=== PATIENT | female | born 1990 | race Caucasian/White ===

== ENCOUNTER 2021-02-06 13:26 | Outpatient (CLI) | payer OTHER, SELFPAY ==
--- NOTE | 2021-02-06 13:32 | US_ITS ---
WS: [id number] ULTRASOUND PELVIS TECHNIQUE: Transabdominal and transvaginal. ULTRASOUND PELVIS TECHNIQUE: Transabdominal. CLINICAL INFORMATION: PELVIC PAIN : No. COMPARISON: None. FINDINGS: Uterus Orientation: Anteverted. Size: 8.9 cm x 5.9 cm x 5.7 cm. Masses: None. Cervix: 3.1 cm. Endometrium: Normal. Endometrium thickness: 1.0 cm. Adnexa: Right ovarian cyst measuring 1.5 x 1.3 x 1.5 CCM. Right ovary size: 4.9 cm x 3.0 cm x 3.2 cm. Right ovary volume: 24.5 ccm3. Left ovary size: 2.1 cm x 1.6 cm x 1.8 cm. Left ovary volume: 3.0 ccm3 Free fluid: None. Other findings: None. US/US pelvic with transvaginal IMPRESSION: 1. Uterus and endometrium are normal in appearance. Endometrium measures 10 mm . 2. Normal cervix measuring 3.1 CM. 3. Right ovarian cyst measuring 1.5 x 1.3 x 1.5 CCM. 4. Left ovary is normal.
== END 2021-02-06 13:27 | disposition home or self-care (01) ==
LOC: RAD 13:29
PROVIDERS: PCP Family Medicine; Visit Provider Family Medicine
DX: R10.2 Pelvic and perineal pain (principal); N83.291 Other ovarian cyst, right side
CPT/HCPCS: 76830; 76856

== ENCOUNTER → 2021-03-06 12:05 | Outpatient (BNVA) | payer OTHER, SELFPAY | PROVIDERS: PCP Family Medicine; Visit Provider Nurse Practitioner Women's Health | DX: N93.9 Abnormal uterine and vaginal bleeding, unspecified (principal); R10.2 Pelvic and perineal pain | CPT/HCPCS: 84443; 84702; 85025; 87491; 87591; 87661 ==

== ENCOUNTER → 2021-03-17 13:05 | Outpatient (BNVA) | payer OTHER, SELFPAY | PROVIDERS: PCP Family Medicine; Visit Provider Nurse Practitioner Women's Health | DX: R10.2 Pelvic and perineal pain (principal); N85.2 Hypertrophy of uterus; N83.201 Unspecified ovarian cyst, right side | CPT/HCPCS: 76830 ==

== ENCOUNTER → 2021-05-29 11:38 | Outpatient (BNVA) | payer OTHER, SELFPAY | PROVIDERS: PCP Family Medicine; Visit Provider Nurse Practitioner Women's Health | DX: N83.201 Unspecified ovarian cyst, right side (principal) | CPT/HCPCS: 76830 ==

== ENCOUNTER → 2021-06-26 09:38 | Outpatient (BNVA) | payer OTHER, SELFPAY | PROVIDERS: PCP Family Medicine; Visit Provider Obstetrics & Gynecology | DX: N73.9 Female pelvic inflammatory disease, unspecified (principal); N73.0 Acute parametritis and pelvic cellulitis; N93.9 Abnormal uterine and vaginal bleeding, unspecified; R10.2 Pelvic and perineal pain | CPT/HCPCS: 87070; 87205 ==

== ENCOUNTER → 2021-07-17 08:05 | Outpatient (BNVA) | payer OTHER, SELFPAY | PROVIDERS: PCP Family Medicine; Visit Provider Obstetrics & Gynecology | DX: N93.9 Abnormal uterine and vaginal bleeding, unspecified (principal); R10.2 Pelvic and perineal pain; Z20.822 Contact with and (suspected) exposure to COVID-19 | CPT/HCPCS: 87635 ==

== ENCOUNTER 2021-07-23 05:42 | Day surgery (SDC) | payer OTHER, SELFPAY ==
[2021-07-22 13:35] VITALS: BMI 18.8
[2021-07-23] VITALS (9 sets, daily range): BP systolic 100–140; BP diastolic 71–101; PULSE 60–83; RESP 14–22; TEMP 36.1–36.7; O2SAT 97–100
[2021-07-23 06:34] LABS: OR HCG Qualitative Urine Negative (Negative)
[2021-07-23 06:40] LABS: Add Urine Microscopic? YES; Bacteria Urine 1+ /hpf; Bilirubin Urine Neg (Negative); Blood Urine 2+ (Negative); Glucose Urine UA Norm (Normal); Ketones Urine 1+ (Negative); Leukocyte Esterase Urine 2+ (Negative); Nitrate Urine Negative (Negative); Protein Urine Neg (Negative); RBC Urine RARE /hpf (0-2); Squamous Epithelial Cell Urine 25-40 /hpf (0-5); Urine Appearance SL Hazy (CLEAR); Urine Color Yellow (Yellow); Urobilinogen Urine Norm (Negative); WBC Urine 15-25 /hpf (0-5); pH Urine 5 (5-7)
[2021-07-23 06:41] LABS: Add Urine Culture? No
[2021-07-23] MEDS: sodium chloride 0.9% 1,000 ML 30 ML IV (06:41)
[2021-07-23] MEDS: sodium chloride 0.9% 500 ML IV (06:41)
[2021-07-23] MEDS: scopolamine 1.5 Patch 1 PATCH TRANSDERMA (06:42)
[2021-07-23 06:48] LABS: Basophils # 0.1 10^3/uL (0.0-0.1); Basophils % 0.9 %; Eosinophils # 0.2 10^3/uL (0.0-0.8); Eosinophils % 2.8 %; Hematocrit 39.8 % (37.0-47.0); Hemoglobin 12.9 g/dL (11.5-15.3); Lymphocytes % 35.8 %; Mean Corpuscular HGB Conc 32.4 g/dL (30.0-36.0); Mean Corpuscular Hemoglobin 30.1 pg (28.0-34.0); Mean Corpuscular Volume 92.8 fl (81-99); Monocytes # 0.4 10^3/uL (0.2-0.9); Neutrophils % 53.1 %; Nucleated Red Blood Cells % 0 %; Platelet Count 293 10^3/cmm (130-400); Red Blood Count 4.29 10^6/uL (4.1-5.3); Red Cell Distribution Width 12.5 % (12.1-15.1); White Blood Count 5.5 10^3/uL (4.0-10.0)
--- NOTE | 2021-07-23 06:54 | P.ANESASSM_ITS ---
Pre-Anesthetic Assessment Pre-Anesthetic Assessment: Height/Weight: Height 1.55 m Weight 45.359 kg Preop Diagnosis: Chronic pelvic pain Proposed Procedure: Operation Date: 07/23/21 07:00 Proposed Procedures p Laparoscopy Diagnostic 92040 R10.2 N93.9(Not Applicable) - Ralph Granda MD Was Beta Tao taken within 24 hours: N/A Was Clonidine taken within 24 hours: N/A Last intake: Intake Last Liquid Date 07/22/21 Last Liquid Time 20:00 Last Solid Date 07/22/21 Last Solid Time 17:30 Social: Social History: Tobacco (Vapes) and No alcohol Exam: Pre-Anes Outpt Exam: alert, oriented x 3, clear to auscultation bilaterally and regular rate & rhythm Airway: Submandibular: WNL Cervical ROM: WNL MP: 2 Dentition: Full History/ROS: No significant history except as noted Anesthetic Plan: ASA status: 2 Anesthesia: General Risk of > 500 ml blood loss (7ml/kg in children): No Meds/Allergies Current Medications: Current Medications Generic Name Dose Route Start Last Admin Trade Name Freq PRN Reason Stop Dose Admin Sodium Chloride 1,000 mls @ 30 ml s/hr 07/23/21 06:00 07/23/21 06:41 Sodium Chloride 0.9% IV 07/24/21 05:59 30 mls/hr .Q24H GERRY Administration PFSH Anesthesia PFSH: Medical History No pertinent past medical history neghx: htn,dm,thyroid,dvt/pe PCP: Dr. Sagastume Surgical History (Updated 03/06/21 @ 13:05 by Arabella Herrmann APN, [place]) Hx of cholecystectomy (~2018) Hx of dilation and curettage (~2007) D&C with suction. Diagnosis: Missed at 11 wks gestation, Performed by Dr José Miguel Cárdenas at [facility] in [place], [place]. Hx of laparoscopy (~09/10/06) Laparoscopy with lysis of adhesions. Dx: abdominal and pelvic pain, adhesions. No evidence of endometriosis. Performed by Dr. José Miguel Cárdenas at [facility] in [place], [place]. Findings: Minimal bowel adhesions. Hx of tubal ligation (~12/09/16) 12/09/2016-- tubal ligation Performed by Dr. Granda at [facility] in [place], [place]. Family History Mother Thyroid disease Sister Thyroid disease Denies family history of Colon cancer Ovarian cancer Diabetes Heart disease Hypercholesteremia Breast cancer Hypertension Uterine cancer Stroke Data Anesthesia CBC & Chem 7: 07/23/21 06:26 07/23/21 06:26 Other Labs: Laboratory Results - last 48 hr 07/23/21 07/23/21 07/23/21 06:10 06:10 06:26 WBC 5.5 RBC 4.29 Hgb 12.9 Hct 39.8 MCV 92.8 MCH 30.1 MCHC 32.4 RDW 12.5 Plt Count 293 MPV 10.0 Neut % (Auto) 53.1 Lymph % (Auto) 35.8 [place] % (Auto) 7.0 Eos % (Auto) 2.8 Baso % (Auto) 0.9 Neut # (Auto) 2.90 Lymph # (Auto) 2.0 [place] # (Auto) 0.4 Eos # (Auto) 0.2 Baso # (Auto) 0.1 Nucleated RBC % (auto) 0 Nucleated RBCs # 0.0 Urine Color Yellow Urine Appearance Sl hazy Urine pH 5 Ur Specific [place] 1.020 Urine Protein Neg Urine Glucose (UA) Norm Urine Ketones 1+ H Urine Blood 2+ H Urine Nitrate Negative Urine Bilirubin Neg Urine Urobilinogen Norm Ur Leukocyte Esterase 2+ H Urine RBC Rare Urine WBC 15-25 H Ur Squamous Epith Cells 25-40 H Amorphous Sediment Not Reportable Urine Bacteria 1+ H Urine HCG, Qual Negative Cardiac Studies: No Data to Display
--- NOTE | 2021-07-23 07:00 | W.PM.OPSUD ---
Surgery/Procedure H&P Update DATE OF PROCEDURE: July 23, 2021 DATE H&P PERFORMED: 07/17/21 H&P UPDATE INFORMATION: I have reviewed H&P completed within last 30 days, I have examined patient prior to procedure and No changes to prior documentation PREOP DIAGNOSIS: Chronic pelvic pain PLANNED PROCEDURE: Operation Date: 07/23/21 07:00 Proposed Procedures p Laparoscopy Diagnostic 37134 R10.2 N93.9(Not Applicable) - Ralph Granda MD
[2021-07-23 07:05] LABS: Anion Gap 12.8 (5-19); Blood Urea Nitrogen 10 mg/dL (6-20); Calcium 8.4 mg/dL (8.5-10.5); Carbon Dioxide 25 mmol/L (22-29); Chloride 103 mmol/L (98-107); Glomerular Filtration Rate 98.3 mL/min (90-130); Glucose 97 mg/dL (65-115); Osmolality Calculated 283 mOsm/kg (285-295); Potassium 3.8 mmol/L (3.5-5.1); Sodium 137 mmol/L (136-145)
--- NOTE | 2021-07-23 08:01 | P.OP_ITS ---
Operative Report Date of procedure: July 23, 2021 Pre-op Diagnosis: Chronic pelvic pain Post-op diagnosis: same Post-op Findings: Normal pelvic organs Procedure Done: Diagnostic laparoscopy Specimens removed/disposition: None Pathology: none sent Surgeon: Ralph Granda MD Anesthesia: General Estimated blood loss (mL): 1 IV fluids (mL): 200 Urine output (mL): 50 Complications: none Findings: Normal pelvic organs but Fredo-Erika pocket on right side. Condition: stable Disposition: PACU Brief History: Mrs. Tom 31 y/o female with hx fo chronic pelvic pain, and AU B. US WNL. Procedure: After informed consent, the patient was taken to the operating room where general anesthesia was administered. The patient was examined under anesthesia and found to have a normal uterus with normal adnexa. She was placed in the dorsal lithotomy position and prepped and draped in sterile fashion. Pre- Procedure Time-Out verifying the correct patient identity, correct procedure verified with consent, correct site and side, correct patient position, availability of correct implants and any special equipment or requirements was performed and acknowledge by the OR team. A weighted speculum was placed in the vagina, and the anterior lip of cervix was grasped with the single toothed tenaculum. A uterine manipulator was advanced into the endocervical. Tenaculum was removed after uterine manipulator was secured. The speculum was removed from the vagina. An intraumbilical incision was made with a scalpel. While tenting up on the abdomen, a Verres needle with sleeve was admitted into the intra-abdominal cavity. A saline drop test was performed and noted to be within normal limits. Pneumoperitoneum was attained with 4 liters of carbon dioxide. The Verres needle was removed. A 5 mm trocar and sleeve were admitted into the abdomen and laparoscopic confirmation of location was achieved, A second incision was made 3 cm above the symphysis pubis, and a 5 mm trocar and sleeve were admitted into the abdomen under direct, laparoscopic visualization without complication. A survey revealed normal abdominal anatomy and pelvic survey shows normal uterus, left and right adnexa. But an Fredo-Erika pocket was noted in the right side. A 5 mm blunt probe was advanced through the second trocar sleeve, and light manipulation of ovaries and uterus to assess the posterior aspects was performed. Carbon dioxide was allowed to escape from the abdomen. The instruments were removed, and skin cover with a bandage. The instruments were removed from the vagina, and excellent hemostasis was noted. The patient tolerated the procedure well, and sponge, lap and needle count were correct times two. The patient taken to the recovery room in good condition.
--- NOTE | 2021-07-23 08:25 | SUR.PHASEI ---
0818: oral airway removed. patient still on simple mask 6L O2 sat at 100
--- NOTE | 2021-07-23 08:38 | SUR.PHASEI ---
0824 PT COMPLAINS OF DIFFICULTY BREATHING, AUDIBLE STRIDOR ON INHALATION, PT INCOURAGED TO COUGH, PT WEAK , UNABLE TO COUGH, BUD HOLM AT BEDSIDE, PT TO BE GIVEN SUGAMADEX BY BUD. SEE NOTES 0830 PT AWAKE ALERT , NO STRIDOR NOW PT C/O OF PAIN, VSS SEE MED BY BUD. 0842 PT TAKING ICE CHIPS PT STATES PAIN IS BETTER.
--- NOTE | 2021-07-23 08:55 | SUR.PHASEI ---
0845 PT AWAKE ALERT TAKING ICE CHIPS WITH NO DIFFICULTY PT TO OPS HANDOFF AT BEDSIDE.
--- NOTE | 2021-07-23 13:56 | ANE.PACU2 ---
Inpatient post-anesthesia follow up: Airway intact: Yes Vital signs: Temperature 97.2 F Pulse Rate 61 Respiratory Rate 16 Blood Pressure 100/71 Pulse Oximetry 98 Oxygen Delivery Me thod Room Air Oxygen Flow Rate 6 Fraction of Inspir ed Oxygen Hydration adequate: Yes Nausea and vomiting: No Pain level: 2 Mental status: Baseline
== END 2021-07-23 09:35 | disposition home or self-care (01) ==
PROVIDERS: PCP Family Medicine; Visit Provider Obstetrics & Gynecology
PROC: (CPT 49320; principal; 2021-07-23 07:00)
DX: R10.2 Pelvic and perineal pain (principal); G89.29 Other chronic pain; N93.9 Abnormal uterine and vaginal bleeding, unspecified; N83.8 Other noninflammatory disorders of ovary, fallopian tube and broad ligament; F17.290 Nicotine dependence, other tobacco product, uncomplicated
CPT/HCPCS: 49320; 36415; 80048; 81001; 81025; 84703; 85025; 86850; 86900; 96365; J0690; J1100; J1200; J1885; J2250; J2405; J2704; J2710; J3010; J3490; J7030; J7040

== ENCOUNTER 2022-11-10 09:36 | Emergency (ER) | payer OTHER, MEDICAID, SELFPAY ==
[2022-11-10] VITALS (7 sets, daily range): BP systolic 107–146; BP diastolic 76–97; PULSE 75–100; RESP 16–18; TEMP 36.8; O2SAT 99–100; BMI 20.7
--- NOTE | 2022-11-10 09:41 | XR_ITS ---
WS: [id number] Portable AP upright chest, 11/10/2022 Clinical Data: dyspnea/cough Comparison: PA and lateral chest, 02/13/2015. Findings: No nodules, masses or effusions are seen. The heart is normal. The pulmonary vascularity is not increased. No pneumonia or pneumothorax is seen. XR/XR chest 1V portable [id number] Impression: Negative chest.
[2022-11-10] MEDS: sodium chloride 0.9% 1,000 ML 999 ML IV (10:04)
[2022-11-10 10:06] LABS: ABG PCO2 32.7 mmHg (35-45); ABG PH Result 7.45 (7.35-7.45); Alveolar-Arterial Oxygen Gradi 1.1 mmHg (5-10); Arterial Blood Gas Hematocrit 40.3 % (37-47); Base Excess ABG -0.6 mmol/L (-2.0-2.0); Blood Gas Allen Test Pos; Blood Gas Operator Identificat MONRO; Blood Gas Sample Site Radial, right; Blood Gas Sample Type Arterial; HCO3 ABG 22.7 mmol/L (22-26); HGB O2 Sat 97.3 % (95-100); Ionized Calcium Level - ABG 1.2 mmol/L (1.1-1.4); Methemoglobin 0.6 % (0.4-1.5); Oxygen Device ROOM AIR; Oxygen Saturation ABG 98.8; PO2 ABG 99.3 mmHg (80.0-100.0); Potassium Level - ABG 3.8 mmol/L (3.5-5.0); Total Hemoglobin 13.2 g/dL (12-16)
--- NOTE | 2022-11-10 10:15 | ED_ITS ---
HPI - Abdominal Pain General: Chief Complaint: Abdominal Pain Stated Complaint: abd, back pain, SOB Time Seen by Provider: 11/10/22 09:39 Source: patient Mode of arrival: ambulatory History of Present Illness: 32-year-old female presents emergency room complaining of abdominal pain and back pain with severe shortness of breath wo rse when she lays down. Began overnight states that her usual state of good health through the evening and then woke up this morning with the abdominal discomfort. She is previous had a cholecystectomy and a tubal ligation. Is been very nauseous but no vomiting or diarrhea. She denies any fever sweats chills dysuria urgency or frequency. MD elicited complaint: abdominal pain Pertinent past history: constipation Onset (ago): hour(s) Pain Consistency: constant Location: Diffuse Severity: mild Quality: cramping Exacerbating factors: nothing Relieving factors: nothing Associated Symptoms: Reports GI cramping, nausea and poor appetite; Denies anorexia, belching, bloating, change in bowel habits, change in stool character, chills, coffee ground emesis, constipation, diarrhea, dyspepsia, dysuria, excessive flatus, fever(s), heartburn, hematochezia, hematuria, hematemesis, fecal incontinence, loose stools, melena, syncope and vomiting Review of Systems Const: Denies: fever(s) or chills ENMT: Denies: throat pain, ear or mastoid pain, nasal discharge or nasal congestion Card: Denies: syncope Resp: Denies: dyspnea, productive cough or non-productive cough GI: Reports: nausea and GI cramping; Denies: vomiting, hematemesis, coffee ground emesis, heartburn, diarrhea, constipation, bloating, belching, excessive flatus, fecal incontinence, change in bowel habits, change in stool character, hematochezia or melena : Denies: dysuria or hematuria Skin/Breast: Denies: rash or pruritus PFSH ED PFSH: Medical History No pertinent past medical history neghx: htn,dm,thyroid,dvt/pe PCP: Dr. Sagastume Surgical History Hx of cholecystectomy (~2018) Hx of dilation and curettage (~2007) D&C with suction. Diagnosis: Missed at 11 wks gestation, Performed by Dr José Miguel Cárdenas at [facility] in [place], [place]. Hx of laparoscopy (~09/10/06) Laparoscopy with lysis of adhesions. Dx: abdominal and pelvic pain, adhesions. No evidence of endometriosis. Performed by Dr. José Miguel Cárdenas at [facility] in [place], [place]. Findings: Minimal bowel adhesions. Hx of tubal ligation (~12/09/16) 12/09/2016-- tubal ligation Performed by Dr. Granda at [facility] in [place], [place]. Family History Mother Thyroid disease Sister Thyroid disease Denies family history of Colon cancer Ovarian cancer Diabetes Heart disease Hypercholesteremia Breast cancer Hypertension Uterine cancer Stroke Physical Exam Const: GENERAL APPEARANCE: cooperative and comfortable ORIENTATION /CONSCIOUSNESS: Yes awake, Yes oriented to person, Yes oriented to place and Yes oriented to time HENMT: COMMON NORMALS: normocephalic, atraumatic and hearing grossly normal bilaterally HEAD & SCALP: normocephalic and atraumatic Resp: COMMON NORMALS: normal respiratory effort, No retractions, No use of accessory muscles and clear to auscultation bilaterally AUSCULTATION: clear to auscultation bilaterally Cardio: COMMON NORMALS: regular rate, regular rhythm and No murmurs present (Cardio) RATE: regular rate RHYTHM: regular rhythm GI: COMMON NORMALS: No hepatosplenomegaly present AUSCULTATION: Yes normoactive bowel sounds PALPATION: Yes Tenderness to palpation present (GI) (Diffuse), No Guarding due to palpation present (GI) and Yes No hepatosplenomegaly present Extremity: COMMON NORMALS: normal to inspection, capillary refill normal, no clubbing, cyanosis or edema, no calf tenderness and no pedal edema Neuro: SENSORIUM/ORIENTATION: Yes oriented to person, Yes oriented to place and Yes oriented to time Skin: COMMON NORMALS: no rashes or lesions noted GENERAL SKIN EXAM: no rashes or lesions noted Course Vital Signs: Vital signs: Vital Signs Temperature 98.3 F 11/10/22 09:40 Pulse Rate 85 11/10/22 12:39 Respiratory Rate 16 11/10/22 12:39 Blood Pressure 111/76 11/10/22 12:39 Pulse Oximetry 100 11/10/22 12:39 Oxygen Delivery Me thod 11/10/22 09:40 MDM - Abdominal Pain Medical Decision Making Labs and imaging reviewed. nondescript abdominal exam. KUB shows significant retained stool. Discussed with the patient we will give lactulose encouraged her to start MiraLAX for prevention of future prior issues follow-up with [facility] as needed Medical Records I reviewed the patient's medical records. Lab Data I reviewed the patient's lab results. 11/10/22 10:06 11/10/22 10:06 Labs/Radiology: Radiology Impressions Chest X-Ray 11/10/22 09:41 Impression: Negative chest. KUB X-Ray 11/10/22 11:43 Impression: Fecal material throughout the colon. Laboratory Results WBC 5.5 10^3/uL (4.0-10.0) 11/10/22 10:06 RBC 4.61 10^6/uL (4.1-5.3) 11/10/22 10:06 Hgb 13.8 g/dL (11.5-15.3) 11/10/22 10:06 Hct 42.7 % (37.0-47.0) 11/10/22 10:06 MCV 92.6 fl (81-99) 11/10/22 10:06 MCH 29.9 pg (28.0-34.0) 11/10/22 10:06 MCHC 32.3 g/dL (30.0-36.0) 11/10/22 10:06 RDW 11.8 % (12.1-15.1) L 11/10/22 10:06 Plt Count 283 10^3/cmm (130-400) 11/10/22 10:06 MPV 10.8 fL (7.4-10.4) H 11/10/22 10:06 Neut % (Auto) 57.8 % 11/10/22 10:06 Lymph % (Auto) 33.8 % 11/10/22 10:06 [place] % (Auto) 5.7 % 11/10/22 10:06 Eos % (Auto) 1.6 % 11/10/22 10:06 Baso % (Auto) 0.9 % 11/10/22 10:06 Neut # (Auto) 3.16 10^3/uL (1.8-7.7) 11/10/22 10:06 Lymph # (Auto) 1.9 10^3/uL (0.8-4.8) 11/10/22 10:06 [place] # (Auto) 0.3 10^3/uL (0.2-0.9) 11/10/22 10:06 Eos # (Auto) 0.1 10^3/uL (0.0-0.8) 11/10/22 10:06 Baso # (Auto) 0.1 10^3/uL (0.0-0.1) 11/10/22 10:06 Nucleated RBC % (auto) 0 % 11/10/22 10:06 Nucleated RBCs # 0.0 /100WBC 11/10/22 10:06 Specimen Type Arterial 11/10/22 09:54 Sample Site Radial, right 11/10/22 09:54 ABG pH 7.45 (7.35-7.45) 11/10/22 09:54 ABG pCO2 32.7 mmHg (35-45) L 11/10/22 09:54 ABG pO2 99.3 mmHg (80.0-100.0) 11/10/22 09:54 ABG HCO3 22.7 mmol/L (22-26) 11/10/22 09:54 ABG O2 Saturation 98.8 11/10/22 09:54 ABG Base Excess -0.6 mmol/L (-2.0-2.0) 11/10/22 09:54 Fredo Test Pos 11/10/22 09:54 A-a O2 Gradient 1.1 mmHg (5-10) L 11/10/22 09:54 Hematocrit 40.3 % (37-47) 11/10/22 09:54 Hgb O2 Saturation 97.3 % (95-100) 11/10/22 09:54 Carboxyhemoglobin 1.0 %THgb (0.4-20.1) 11/10/22 09:54 Methemoglobin 0.6 % (0.4-1.5) 11/10/22 09:54 Total Hemoglobin 13.2 g/dL (12-16) 11/10/22 09:54 Sodium 139.0 mmol/L (131-143) 11/10/22 09:54 Potassium 3.8 mmol/L (3.5-5.0) 11/10/22 09:54 Glucose 90.0 mg/dL (70-115) 11/10/22 09:54 Ionized Calcium 1.2 mmol/L (1.1-1.4) 11/10/22 09:54 O2 Delivery Device Room air 11/10/22 09:54 FiO2 21.0 % 11/10/22 09:54 [employer] Worker ID [place] 11/10/22 09:54 Sodium 138 mmol/L (136-145) 11/10/22 10:06 Potassium 3.7 mmol/L (3.5-5.1) 11/10/22 10:06 Chloride 102 mmol/L (98-107) 11/10/22 10:06 Carbon Dioxide 23 mmol/L (22-29) 11/10/22 10:06 Anion Gap 16.7 (5-19) 11/10/22 10:06 BUN 5 mg/dL (6-20) L 11/10/22 10:06 Creatinine 0.6 mg/dL (0.5-0.9) 11/10/22 10:06 GFR Calculation 116.6 mL/min (90-130) 11/10/22 10:06 Glucose 79 mg/dL (65-115) 11/10/22 10:06 Calculated Osmolality 282 mOsm/kg (285-295) L 11/10/22 10:06 Calcium 8.8 mg/dL (8.5-10.5) 11/10/22 10:06 Total Bilirubin 1.0 mg/dL (0.15-1.2) 11/10/22 10:06 AST 24 U/L (0-32) 11/10/22 10:06 ALT 10 U/L (0-33) 11/10/22 10:06 Alkaline Phosphatase 69 U/L (35-105) 11/10/22 10:06 Total Protein 7.8 g/dL (6.6-8.7) 11/10/22 10:06 Albumin 4.9 g/dL (3.5-5.2) 11/10/22 10:06 Globulin 2.9 g/dL (1.3-4.6) 11/10/22 10:06 Lipase 44 U/L (13-60) 11/10/22 10:06 HCG, Qual Negative (Negative) 11/10/22 10:06 Urine Color Yellow (Yellow) 11/10/22 10:15 Urine Appearance Clear (CLEAR) 11/10/22 10:15 Urine pH 5 (5-7) 11/10/22 10:15 Ur Specific [place] 1.010 (1.005-1.030) 11/10/22 10:15 Urine Protein Neg (Negative) 11/10/22 10:15 Urine Glucose (UA) Norm (Normal) 11/10/22 10:15 Urine Ketones Negative (Negative) 11/10/22 10:15 Urine Blood Neg (Negative) 11/10/22 10:15 Urine Nitrate Negative (Negative) 11/10/22 10:15 Urine Bilirubin Neg (Negative) 11/10/22 10:15 Urine Urobilinogen Neg mg/dL (Negative) 11/10/22 10:15 Ur Leukocyte Esterase Negative (Negative) 11/10/22 10:15 Discharge Plan Discharge Patient Disposition: Home Clinical Impression: Constipation Condition: Stable Prescriptions: New lactulose 20 gram/30 mL solution 30 g PO Q2H 1 Days Qty: 540 0RF Rx Instructions: until desired laxative effect No Action ibuprofen 200 mg Tablet 400 mg PO Q6H PRN (Reason: Pain) Discharge Orders: Discharge ED (Routine); Ordered 11/10/22 Ordered By: Zach Atwood Referrals: Rex Sagastume MD [Primary Care Provider] - Discharge Diet: Usual diet Discharge Activity: Resume usual activity Patient Instructions: Opioid Safety, Pain Management Activity Restrictions/Additional Instructions: You are seen today for abdominal pain your laboratory tests were unremarkable yo ur abdominal x-ray showed a large amount of stool in the colon. Recommend you use lactulose to relieve the immediate constipation. Consider starting MiraLAX 1 capful once daily for prophylaxis to prevent constipation in the future follow-up with your primary care doctor as needed. Coding Level of Care Code ED Trackman for Chg Fwd Exam Detailed
[2022-11-10 10:18] LABS: Basophils # 0.1 10^3/uL (0.0-0.1); Basophils % 0.9 %; Eosinophils # 0.1 10^3/uL (0.0-0.8); Eosinophils % 1.6 %; Hematocrit 42.7 % (37.0-47.0); Hemoglobin 13.8 g/dL (11.5-15.3); Lymphocytes # 1.9 10^3/uL (0.8-4.8); Lymphocytes % 33.8 %; Mean Corpuscular HGB Conc 32.3 g/dL (30.0-36.0); Mean Corpuscular Hemoglobin 29.9 pg (28.0-34.0); Mean Corpuscular Volume 92.6 fl (81-99); Mean Platelet Volume 10.8 fL (7.4-10.4); Monocytes # 0.3 10^3/uL (0.2-0.9); Monocytes % 5.7 %; Neutrophils # 3.16 10^3/uL (1.8-7.7); Neutrophils % 57.8 %; Nucleated Red Blood Cells % 0 %; Platelet Count 283 10^3/cmm (130-400); Red Blood Count 4.61 10^6/uL (4.1-5.3); Red Cell Distribution Width 11.8 % (12.1-15.1); White Blood Count 5.5 10^3/uL (4.0-10.0)
[2022-11-10 10:24] LABS: Add Urine Microscopic? NO; Charge for UA Resulting for Rev
[2022-11-10 10:31] LABS: Bilirubin Urine Neg (Negative); Blood Urine Neg (Negative); Glucose Urine UA Norm (Normal); Ketones Urine Negative (Negative); Leukocyte Esterase Urine Negative (Negative); Nitrate Urine Negative (Negative); Protein Urine Neg (Negative); Urine Appearance Clear (CLEAR); Urine Color Yellow (Yellow); Urobilinogen Urine Neg (Negative); pH Urine 5 (5-7)
[2022-11-10 10:40] LABS: HCG, Serum Qual Negative (Negative)
[2022-11-10 10:47] LABS: Alanine Aminotransferase 10 U/L (0-33); Albumin Level 4.9 g/dL (3.5-5.2); Alkaline Phosphatase 69 U/L (35-105); Aspartate Amino Transferase 24 U/L (0-32); Blood Urea Nitrogen 5 mg/dL (6-20); Calcium 8.8 mg/dL (8.5-10.5); Carbon Dioxide 23 mmol/L (22-29); Chloride 102 mmol/L (98-107); Globulin 2.9 g/dL (1.3-4.6); Glomerular Filtration Rate 116.6 mL/min (90-130); Glucose 79 mg/dL (65-115); Lipase 44 U/L (13-60); Osmolality Calculated 282 mOsm/kg (285-295); Sodium 138 mmol/L (136-145); Total Protein 7.8 g/dL (6.6-8.7)
[2022-11-10 10:49] LABS: Anion Gap 16.7 (5-19); Potassium 3.7 mmol/L (3.5-5.1)
--- NOTE | 2022-11-10 11:43 | XR_ITS ---
WS: [id number] KUB, AP portable supine, 11/10/2022 Clinical Data: abd pain Comparison: Flat and upright abdomen, 03/16/2018 Findings: No abnormal intraabdominal masses or calcifications are seen. There is no dilatated small bowel or ev idence of obstruction. There is fecal material throughout the colon. The bladder is full. XR/XR KUB portable [id number] Impression: Fecal material throughout the colon.
== END 2022-11-10 12:41 | disposition home or self-care (01) ==
PROVIDERS: Emergency Provider Family Medicine; PCP Family Medicine
DX: K59.00 Constipation, unspecified (principal)
CPT/HCPCS: 36600; 71045; 74018; 80051; 80053; 81003; 82330; 82805; 83690; 84703; 85025; 99284; J7030

== ENCOUNTER → 2023-09-08 10:46 | Outpatient (BNVA) | payer OTHER, SELFPAY | PROVIDERS: PCP Family Medicine; Visit Provider Family Medicine | DX: K25.9 Gastric ulcer, unspecified as acute or chronic, without hemorrhage or perforation (principal); R10.2 Pelvic and perineal pain; G89.29 Other chronic pain | CPT/HCPCS: 80053; 83690; 85025 ==

== ENCOUNTER → 2024-09-18 11:09 | Outpatient (BNVA) | payer MEDICAID, SELFPAY | PROVIDERS: PCP Family Medicine; Visit Provider Family Medicine | DX: F41.9 Anxiety disorder, unspecified (principal); Z00.00 Encounter for general adult medical examination without abnormal findings; N76.0 Acute vaginitis; Z78.9 Other specified health status | CPT/HCPCS: 80061; 87491; 87591; 87624; 87661 ==

== ENCOUNTER → 2024-10-24 09:25 | Outpatient (BNVA) | payer MEDICAID, SELFPAY | PROVIDERS: PCP Family Medicine; Visit Provider Family Medicine | DX: J06.9 Acute upper respiratory infection, unspecified (principal) | CPT/HCPCS: 87400; 87426 ==

== ENCOUNTER → 2025-10-23 08:48 | Outpatient (BNVA) | payer SELFPAY | PROVIDERS: PCP Family Medicine; Visit Provider Family Medicine | DX: N91.2 Amenorrhea, unspecified (principal); R10.20 Pelvic and perineal pain unspecified side | CPT/HCPCS: 84703 ==

== ENCOUNTER 2025-10-25 16:14 | Outpatient (CLI) | payer SELFPAY ==
--- NOTE | 2025-10-25 16:30 | USR_ITS ---
PROCEDURE INFORMATION: Exam: US Pelvis, Complete, Non-Obstetric Exam date and time: 10/25/2025 4:32 PM Age: 35 years old Clinical indication: Pelvic pain TECHNIQUE: Imaging protocol: Transabdominal pelvic nonobstetric ultrasound. Complete exam. Real time ultrasound with image documentation. [id number] image(s) are submitted. COMPARISON: US pelv w/transvag [id number] 02/06/2021 1:56 PM FINDINGS: Uterus: Normal-appearing uterus with small endometrial lining of 1 cm. Bilateral ovary are visualized, only able to visualized left ovary in transvaginal technique. No free pelvic fluid. No adnexal mass. Right ovary volume of 20 cc and left ovary volume of 7 cc. uterus measures 9.5 x 4 x 6.1 cm . prominent venous vascularity of bilateral adnexa, could represent pelvic congestion syndrome versus normal variant. Right ovary/adnexa: See Uterus finding. Left ovary/adnexa: Ovary is normal. No mass. Normal blood flow. Intraperitoneal space: See Uterus finding. US/US pelv w/transvag [id number] IMPRESSION: Normal-appearing uterus with small endometrial lining of 1 cm. Bilateral ovary are visualized, only able to visualized left ovary in transvaginal technique. No free pelvic fluid. No adnexal mass. Right ovary volume of 20 cc and left ovary volume of 7 cc. Prominent venous vascularity of bilateral adnexa, could represent pelvic congestion syndrome versus normal variant.
== END 2025-10-25 16:15 | disposition home or self-care (01) ==
LOC: RAD 16:15
PROVIDERS: PCP Family Medicine; Visit Provider Family Medicine
DX: R10.23 Pelvic and perineal pain bilateral (principal); N94.89 Other specified conditions associated with female genital organs and menstrual cycle
CPT/HCPCS: 76830; 76856